=== PATIENT | female | born 1955 | race Caucasian/White ===

== ENCOUNTER 2022-02-22 08:28 | Emergency (ER) | payer OTHER ==
[~2022-02-22] VITALS: Ht 170.2 cm; Wt 96.2 kg
[2022-02-22] MEDS ORDERED: DiphenhydrAMINE HCL 50 MG/ML VIAL IV STA (08:42)
[2022-02-22] MEDS ORDERED: SOLU-MEDROL 125MG VIAL IVP STA (08:42)
[2022-02-22] MEDS ORDERED: FAMOTIDINE 20MG VIAL IV STA (08:42)
[2022-02-22 08:57] VITALS: BP 120/58
[2022-02-22] MEDS ORDERED: PRED5TAB PO (09:53)
[2022-02-22] MEDS ORDERED: LORA10TA7 PO (09:53)
[2022-02-22] MEDS ORDERED: DEXAMETHASONE SOD PHOSPHATE 4 MG/ML 1ML VIAL IM ONE (10:00)
[2022-02-22] MEDS ORDERED: BACI30OI10 TP (10:01)
== END 2022-02-22 10:12 | disposition home or self-care (01) ==
LOC: EDH 08:28
DX: T78.40XA Allergy, unspecified, initial encounter (principal); L30.1 Dyshidrosis [pompholyx]; Z88.8 Allergy status to other drugs, medicaments and biological substances; Z90.89 Acquired absence of other organs; Z90.710 Acquired absence of both cervix and uterus
CPT/HCPCS: 99284; 96374; 96375; 96372; J1100; J1200; J3490; J2930